=== PATIENT | female | born 1965 | race Caucasian/White ===

== ENCOUNTER 2019-05-29 08:37 | Inpatient (IN) ==
--- NOTE | 2019-04-02 12:18 | Anesthesiology Consultation ---
Date of Service April 02, 2019 Assessment & Plan (1) Encounter for pre-operative examination: Chart Review Chart Review: Pending: Refer to Additional Notes / Consult section (pending preop testing (labs, EKG, CXR)) and Patient seen in Pre Admission Testing Teaching & Discussion Pre-Anesthesia Teaching/Discussion Notes: Instructed NPO after midnight before surgery,except medications with 15 cc of water. Medication instructions prov ided according to the PAT guidelines. History Surgery Operation Date: 05/29/19 07:00 Proposed Procedures p Left Total Knee Arthroplasty - Klaus Saleh MD Height/Weight Height: 5 ft 1.5 in Weight: 125.1 kg Allergies Allergy/AdvReac Type Severity Reaction Status Date / Time sumatriptan [From Imitrex] Allergy Severe BODY Verified 03/29/19 15:20 NUMBNESS/HEADACHE INCREASED adhesive tape AdvReac Intermediate SKIN Verified 03/29/19 15:20 IRRITATION Medications Home Medications Medication Instructions Recorded Confirmed Last Taken albuterol sulfate 2 inh INHALATION Q6H PRN 03/29/19 03/29/19 Unknown ascorbic acid (vitamin C) [Vitamin 1 g PO DAILY 03/29/19 03/29/19 Unknown C] benazepril-hydrochlorothiazide 1 tab PO QAM 03/29/19 03/29/19 Unknown calcium carbonate-vitamin D3 1 cap PO DAILY 03/29/19 03/29/19 Unknown [Calcium 600 + D(3)] levothyroxine 25 mcg PO QAM 03/29/19 03/29/19 Unknown lysine [L-Lysine] 500 mg PO DAILY 03/29/19 03/29/19 Unknown montelukast [Singulair] 10 mg PO PM 03/29/19 03/29/19 Unknown multivitamin 1 tab PO DAILY 03/29/19 03/29/19 Unknown pantoprazole 40 mg PO QAM 03/29/19 03/29/19 Unknown paroxetine HCl [Paxil] 30 mg PO QAM 03/29/19 03/29/19 Unknown potassium 99 mg PO DAILY 03/29/19 03/29/19 Unknown turmeric 400 mg PO DAILY 03/29/19 03/29/19 Unknown cetirizine [Zyrtec] 10 mg PO DAILY 04/02/19 04/02/19 Unknown melatonin 1 tab PO HS 04/02/19 04/02/19 Unknown Past Medical History Medical History CAD (coronary artery disease) "minimal" per 06/2015 cardiac cath Morbid obesity Anxiety and depression Asthma stable Fibromyalgia GERD (gastroesophageal reflux disease) controlled Hypertension Hypothyroidism Lower back pain Migraine Osteoarthritis Sleep apnea BIPAP Temporomandibular joint disorder no locking Exercise / Class Metabolic Activity III < 4 Walking/Shop/Light housework Past Family History Family History Other Family history of esophageal cancer Past Surgical History Surgical History H/O total hysterectomy History of arthroscopy RT KNEE History of cardiac cath 2014= NO STENTS History of section X 3 History of colonoscopy History of esophagogastroduodenoscopy (EGD) + DILATION [place] teeth removed Past Anesthesia History Other Patient: *Awareness* with cardiac cath, EGD. Daughter: "slow to wake" History of PONV No Hx of PONV and Hx of Motion Sickness (mild) Social History Smoking Status: Former smoker tobacco type: cigarettes Do You Dip or Chew Tobacco: No Smoking End Date: QUIT 25 YEARS AGO Hx Alcohol Use: Yes Alcohol type: hard liquor alcohol intake frequency: a few times a month Hx Substance Use: No substance use type: does not use Review of Systems Reflux controlled. Patient denies chest pain, shortness of breath, cough, wheezing, palpitations. Physical Exam Vital Signs VITALS BP 123/73 P 75 TEMP 98.3 SP02 94%RA RESP 16 PHYSICAL Full neck and c-spine range of motion. Full TMJ range of motion. TMD 3.5 finger breaths Mallampati Score 2 Dentition: intact Lungs: clear throughout to auscultation Cardiac: regular rate and rhythm, no murmurs noted Spine: normal Carotid arteries: negative bruit Extremities: no edema Thick neck Testing Echocardiogram Date: 06/18/15 EF 55%. No RWMA. Mild LVH. Mild to moderate TR. Mild MR. Mild pulmonary HTN (PASP 32-37mmhg). Stress Test Date: 06/18/15 Type: nuclear (Lexiscan) EF 62%. Positive stress EKG. Anterior/apical wall ischemia on nuclear stress test. *Subsequent cardiac cath with minimal non-obstructive CAD done 06/30/15* Cardiac Catheterization Date: 06/30/15 Minimal CAD. EF 60%. No aortic stenosis.
--- NOTE | 2019-04-02 12:25 | PAT Medication Instructions ---
Medication Instructions Date of Service April 02, 2019 Home Medications albuterol sulfate 2 inh INHALATION Q6H PRN ascorbic acid (vitamin C) [Vitamin C] 1 g PO DAILY benazepril-hydrochlorothiazide 1 tab PO QAM calcium carbonate-vitamin D3 [Calcium 600 + D(3)] 1 cap PO DAILY levothyroxine 25 mcg PO QAM lysine [L-Lysine] 500 mg PO DAILY montelukast [Singulair] 10 mg PO PM multivitamin 1 tab PO DAILY pantoprazole 40 mg PO QAM paroxetine HCl [Paxil] 30 mg PO QAM potassium 99 mg PO DAILY turmeric 400 mg PO DAILY Zyrtec daily Melatonin QPM STOP taking 2 weeks before surgery (or as soon as possible if surgery is within 2 weeks) lysine [L-Lysine] 500 mg PO DAILY turmeric 400 mg PO DAILY DO NOT take the morning of surgery ascorbic acid (vitamin C) [Vitamin C] 1 g PO DAILY calcium carbonate-vitamin D3 [Calcium 600 + D(3)] 1 cap PO DAILY multivitamin 1 tab PO DAILY potassium 99 mg PO DAILY Zyrtec daily Take morning of surgery With a small sip of water, OTHERWISE NOTHING TO EAT OR DRINK AFTER MIDNIGHT: albuterol sulfate 2 inh INHALATION Q6H PRN (use if needed; please bring with you to hospital day of surgery if possible) levothyroxine 25 mcg PO QAM pantoprazole 40 mg PO QAM paroxetine HCl [Paxil] 30 mg PO QAM Take evening before surgery albuterol sulfate 2 inh INHALATION Q6H PRN (if needed) montelukast [Singulair] 10 mg PO PM melatonin PM Other Notes If you have any questions please call us at [phone] or [phone] or [phone] or [phone]
[2019-04-02 13:02] LABS: Basophils # (auto) 0.04 K/uL (0-0.2); Basophils % (auto) 0.5 %; Eosinophils # (auto) 0.45 K/uL (0-0.5); Eosinophils % (auto) 5.5 %; Hematocrit (blood only) 34.8 % (37-47); Hemoglobin 11.4 g/dL (12.0-16.0); Immature Granulocytes # (auto) 0.03 K/uL (0.00-0.02); Immature Granulocytes % (auto) 0.4 %; Lymphocytes # (auto) 1.88 K/uL (1.2-3.4); Lymphocytes % (auto) 23.1 %; Mean Corpuscular Hgb Conc 32.8 g/dL (32-36); Mean Corpuscular Volume 94.6 fL (80-100); Monocytes # (auto) 0.53 K/uL (0.11-0.59); Monocytes % (auto) 6.5 %; Neutrophils # (auto) 5.21 K/uL (1.4-6.5); Platelet Count 262 K/uL (130-400); RDW Coefficient of Variation 12.8 % (11.5-14.5); Red Blood Count 3.68 M/uL (4.2-5.4); White Blood Count 8.14 K/uL (4.8-10.8)
[2019-04-02 13:21] LABS: Partial Thromboplastin Time 27.1 Seconds (21.0-31.0); Prothrombin Time 10.4 Seconds (9.0-12.0)
--- NOTE | 2019-04-02 13:24 | XRay Report ---
XR chest Pre-admission PA/Lat CLINICAL HISTORY: Preoperative chest COMPARISON STUDY: No previous studies for comparison. FINDINGS: The cardiac and mediastinal contours are normal. There is no evidence of focal pulmonary co nsolidation. There is no evidence of failure. No pleural effusions are visualized.[ IMPRESSION: No active disease in the chest. Electronically signed by: Guille Cullen M.D. 04/02/2019 1:23 PM
[2019-04-02 13:56] LABS: BUN Creatinine Ratio 18.4 (10-20); C Reactive Protein 1.75 mg/dl (0-0.29); Calcium 9.5 mg/dl (8.5-10.1); Creatinine Clr Calc Pharmacy 83.3 ml/min; Est GFR (African American) 75.9; Est GFR (Non-African American) 65.5; Potassium 4.1 mmol/L (3.5-5.1)
--- NOTE | 2019-05-27 12:47 | History and Physical Report ---
DATE OF ADMISSION: 05/29/2019 CHIEF COMPLAINT: Bilateral knee pain and discomfort, left side greater than the right. HISTORY OF PRESENT ILLNESS: The patient is a 54-year-old female from [place], who presents for treatment of her knees. She has got a long history of bilateral knee pain and discomfort, describes it has gotten worse over time. She states this has been going on for over 15 years. 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 She has seen Dr. Agarwal in the past who refused to consider surgery due to her BMI. She has got a BMI of 52. She continues to be limited by her walking. She has tried to lose weight but unsuccessful due to her limited mobility. She uses a cane to get around for the past year or two. She denies any groin pain. Walking tolerance is a couple of blocks at best. She would like to have her knees fixed. The left knee is a bit worse than the right. PAST MEDICAL HISTORY: Past medical history significant for 1. Morbid obesity with BMI of 52. 2. Hypertension. 3. Fibromyalgia. 4. Asthma. 5. Hypothyroidism. 6. Sleep apnea with CPAP machine. 7. Low back pain/sciatica. PAST SURGICAL HISTORY: Includes: 1. x3. 2. Hysterectomy. 3. Knee arthroscopy. 4. Endometriosis surgery. ALLERGIES: IMITREX. CURRENT MEDICINES: Include: 1. Paxil. 2. Pantoprazole. 3. Benazepril/hydrochlorothiazide. 4. Levothyroxine. 5. Singulair. 6. Zyrtec. 7. Albuterol. 8. Melatonin. 9. Lysine. 10. Potassium. 11. Vitamin C. 12. Vitamin D. 13. B complex. 14. Turmeric. SOCIAL HISTORY: A 54-year-old female. She is . She runs a dance studio. Rare alcohol intake. Does not smoke. FAMILY HISTORY: Noncontributory. REVIEW OF HISTORY: Negative for diabetes, neurologic problem, vascular problem, bleeding disorders. Denies any chest pain or shortness of breath. No history of DVT or PE. No known bleeding problems. PHYSICAL EXAMINATION: GENERAL: Shows a pleasant, middle-aged female. Looks to be in reasonably good health. HEENT: Benign. NECK: Supple, no lymphadenopathy. LUNGS: Clear to auscultation. HEART: Regular rate and rhythm. ABDOMEN: Soft, nontender, nondistended. EXTREMITIES: Grossly neurovascularly intact except as follows. Examination of both knees reveals patient walks with a waddling gait. She has got a moderate to large soft tissue envelope. Examination of the left knee reveals varus alignment. Large soft tissue envelope. She is tender with medial joint line. Small knee effusion. Range of motion is 5-110. No instability. No pain with hip motion. Examination of the right knee reveals varus alignment. She is tender over the medial joint line. Small knee effusion. Range of motion 5-110. No instability. No pain with hip motion. X-RAYS: X-rays of both knees were reviewed. It shows advanced bilateral knee DJD. She has got complete loss of medial joint space. She has tibial femoral subluxation. ASSESSMENT: A 54-year-old female with advanced bilateral knee degenerative joint disease. She has failed conservative treatment. She has a very large BMI, but has attempted weight loss with unsuccessful results. She would like to consider knee surgery. PLAN: We are going to proceed with left knee replacement. The risks and benefits of this procedure were explained to the patient including but not limited to DVT, PE, , infection, neurological injury, vascular injury, bleeding problem, pain, limited range of motion, stiffness, failure to relieve symptoms, incomplete relief of symptoms, need for further surgery in future, fracture, leg length inequality, nerve palsy, etc. The patient understands and desires to proceed. Informed consent was obtained. I did talk to her about her BMI and her increased risk of complications, which are markedly increased. She is aware of this and would like to proceed. We will likely put a stem in her tibia due to her large size and deformity. We will hold her lisinopril the morning of surgery. She is planning to be discharged to home. Her daughters will apparently be available to assist in her care.
[~2019-05-29 08:37] MED LIST: ACETAMINOPHEN 500 MG TAB PO SCH; BETAMETH SOD PHOS/ACETATE IA 6 MG/ML IM STA; BUPIVACAINE 0.5 % 5 MG/1 ML PF 10ML VIAL ONE; BUPIVACAINE LIPOSOME/PF 266 MG, BUPIVACAINE/EPINEPHRINE 50 ML, SODIUM CHLORIDE 0.9% 30 ... INFIL SCH; CEFAZOLIN 3000MG 72.5 ML IV SCH; FAMOTIDINE 20 MG TAB PO SCH; GABAPENTIN 600 MG DOSE PO SCH; LR 500ML BOLUS, THEN 15ML/HR IV SCH; LR 60ML/HR IV SCH; METOCLOPRAMIDE HCL 10 MG TABLET PO SCH; MIDAZOLAM HCL 1 MG/ML 2ML VIAL ONE; ROPIVACAINE 0.5% 5 MG/ML 30 ML VIAL ONE; SCOPOLAMINE 1.5 MG TDSY TD SCH; TRANEXAMIC ACID 1,000 MG **IV Intra-op IV SCH; fentaNYL citrate 100 MCG/2 ML VIAL ONE
--- NOTE | 2019-05-29 08:50 | History & Physical Bridge Note ---
Date of Service May 29, 2019 History & Physical Bridge Note I have examined the patient, reviewed the History & Physical and in the interval since the performance of the History & Physical I have noted the following changes of clinical significance: Patient with severe bilateral knee DJD. We will inject right knee while under anesthesia at patient's request.
[2019-05-29] MEDS ORDERED: ONDANSETRON INJ 2 MG/ML 2 ML VIAL IV PRN ×2 (09:34→14:23)
[2019-05-29] MEDS ORDERED: KETOROLAC 30 MG/ML VIAL IV PRN (09:34)
[2019-05-29] MEDS ORDERED: HYDROmorphone INJ 1 MG/ML SYRINGE IV PRN (09:34)
[2019-05-29] MEDS ORDERED: ePHEDrine sulfate 50 MG/ML AMP IV PRN (09:34)
[2019-05-29] MEDS ORDERED: ATROPINE SULFATE 0.1 MG/ML 10ML SYR IV PRN (09:34)
[2019-05-29] MEDS ORDERED: BACITRACIN INJ 50,000 UNIT VIAL ONE (09:35)
[2019-05-29] MEDS ORDERED: EPINEPHrine INJ 1 MG/ML AMP ONE (09:35)
[2019-05-29] MEDS ORDERED: BUPIVACAINE LIPOSOME 1.3% 266 MG/20 ML VIAL ONE (09:35)
[2019-05-29] MEDS ORDERED: BUPIVACAINE 0.25% 30 ML VIAL ONE (09:35)
[2019-05-29] MEDS ORDERED: SODIUM CHLORIDE 0.9% PF 50 ML VIAL ONE (09:35)
[2019-05-29] MEDS ORDERED: VANCOMYCIN HCL 1000MG/20ML VIAL ONE (09:36)
[2019-05-29] MEDS ORDERED: BUPIVACAINE 0.5 % 5 MG/1 ML MPF 30ML VIAL ONE (09:36)
[2019-05-29] MEDS ORDERED: PROPOFOL IV EMULSION 10 MG/ML 20 ML VIAL IV ONE ×2 (10:37→11:34)
[2019-05-29] MEDS ORDERED: KETAMINE HCL INJ 50 MG/ML 10 ML VIAL ONE (10:49)
[2019-05-29] MEDS ORDERED: GLYCOPYRROLATE 0.2 MG/ML VIAL ONE (10:50)
[2019-05-29] MEDS ORDERED: ONDANSETRON INJ 2 MG/ML 2 ML VIAL ONE (10:50)
[2019-05-29] MEDS ORDERED: MIDAZOLAM HCL 1 MG/ML 2ML VIAL ONE (10:58)
--- NOTE | 2019-05-29 12:49 | Post Operative Brief Note ---
PG Immediate Post Op with CF Date of Surgery May 29, 2019 Pre & Post Diagnosis Operation Date: 05/29/19 10:55 Pre-Op Diagnosis: Bilateral Knee Advanced Degenerative Joint Disease Post-Op Diagnosis: Bilateral Knee Advanced Degenerative Joint Disease I identified the patient and participated in the time-out.: Yes Procedure Operation Date: 05/29/19 10:55 Actual Procedures p Left Total Knee Arthroplasty and Right Knee Injection(Bilateral) - Klaus Saleh MD Surgeon Klaus Saleh MD Non Destructive Testing Technician Radu, PAC Estimated Blood Loss 50 Findings Consistent with Post-Op Diagnosis Fluids 700 cc Specimens Specimen Description: A. Left Knee Bone and Tissue Drains Frank Catheter (A 16 Albanian frank catheter was attempted to be placed by Pat Chandler RN, resistance met at urethral opening, a 12 [place]ian frank catheter was then placed without difficulty, clear yellow urine obtained, output to be monitored by Anesthesia.) Anesthesia Type Spinal MAC Complications none Disposition Accompanied Patient To Recovery: No Disposition: Recovery Room
--- NOTE | 2019-05-29 13:25 | XRay Report ---
TWO VIEWS LEFT KNEE CLINICAL HISTORY: Postoperative examination. FINDINGS: AP and crosstable lateral portable views of the left knee are obtained. A left knee arthrop lasty is in near anatomic alignment. There has been undersurface remodeling of the patella. There is a long tibial stem. No acute fracture is seen. There are expected postoperative changes around the kn ee including skin clips, soft tissue edema, and subcutaneous gas. IMPRESSION: Expected postoperative changes status post left knee arthroplasty. No acute fracture is s een. Electronically signed by: Rd Freeman M.D. 05/29/2019 1:24 PM
--- NOTE | 2019-05-29 13:54 | Anesthesiology Progress Note ---
Date of Service May 29, 2019 Anesthesia Post Procedure Vital Signs Vital Signs: Temp Pulse Pulse Resp BP Pulse Ox 05/29/19 13:25 37.0 C 78 19 122/79 96 05/29/19 13:15 36.6 C 82 14 116/74 93 05/29/19 13:05 36.6 C 82 19 129/86 93 05/29/19 12:56 36.6 C 84 14 136/80 96 05/29/19 09:11 37.3 C 92 H 20 165/93 H 95 Pain Intensity Left Knee: Pain Intensity: 0 Right Knee: Pain Intensity: 0 Transfer of Care Handoff Completed per policy Notes Mental Status: alert / awake / arousable Patient Amnestic to Procedure: Yes Nausea / Vomiting: adequately controlled Pain: adequately controlled Airway Patency, RR, SpO2: stable & adequate BP & HR: stable & adequate Hydration State: stable & adequate Neuraxial Anesthesia: was administered and sensory block is resolving Anesthetic Complications: no major complications apparent
[2019-05-29] MEDS ORDERED: MAGNESIUM HYDROXIDE SUSP 30 ML UDC PO PRN (14:23)
[2019-05-29] MEDS ORDERED: ALUMINUM/MAGNESIUM SUSP 30 ML UDC PO PRN (14:23)
[2019-05-29] MEDS ORDERED: BISACODYL 10 MG SUPP PR PRN (14:23)
[2019-05-29] MEDS ORDERED: HYDROmorphone INJ 0.5 MG/0.5 ML SYR IV PRN (14:23)
[2019-05-29] MEDS ORDERED: METOCLOPRAMIDE HCL INJ 5 MG/ML 2 ML VIAL IV PRN (14:23)
[2019-05-29] MEDS ORDERED: NALOXONE HCL 0.4 MG/1 ML VIAL/CARP IV PRN (14:23)
[2019-05-29] MEDS ORDERED: ALBUTEROL HFA 8 GM INHALER INH PRN (14:43)
[2019-05-29] MEDS: OXYCODONE HCL IR 5 MG TAB (IMMEDIATE RELEASE) PO PRN ×2 (16:13→22:21)
[2019-05-29] MEDS: SODIUM CHLORIDE 0.9% 1000ML 1,000 ML IV SCH ×2 (16:14→22:22)
[2019-05-29] MEDS: CHECK SCOPOLAMINE PATCH PLACEMENT SCH ×2 (16:17→23:39)
--- NOTE | 2019-05-29 17:55 | Operative Report ---
Post Operative Report Pre & Post Diagnosis Operation Date: 05/29/19 10:55 Pre-Op Diagnosis: Bilateral Knee Advanced Degenerative Joint Disease Post-Op Diagnosis: Bilateral Knee Advanced Degenerative Joint Disease I identified the patient and participated in the time-out.: Yes Procedure Operation Date: 05/29/19 10:55 Actual Procedures p Left Total Knee Arthroplasty and Right Knee Injection(Bilateral) - Klaus Saleh MD Surgeon Klaus Saleh MD Chief Customer Officer Radu, PAC Estimated Blood Loss 50 Findings Consistent with Post-Op Diagnosis Operative findings revealed advanced bilateral knee DJD. With respect to the left knee she had extensive grade 4 changes in all 3 compartments. She had a very stiff knee and a large soft tissue envelope. She had osteophytes in all 3 compartments with a large knee joint effusion. Fluids 700 cc Specimens Left knee sent for pathology. Anesthesia Type Spinal MAC Complications none Disposition Accompanied Patient To Recovery: No Disposition: Recovery Room Indications Patient is a 53-year-old obese female who has a long history of bilateral left knee pain discomfort describes gotten worse over time. This been going on over the past 15 years. She is been through extensive conservative treatment without relief. She had to resort to using a cane to get around. 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 She is attempted extensive weight loss without much success. She is x-ray showed advanced tricompartment DJD. She elected to left total knee replacement and a right knee injection. Description of Procedure Operative implants consisted of: 1. Biomet Vanguard size 60 left posterior bifemoral component. 2. Biomet size 63 Vanguard III 68 tibial tray with a 10 x 80 mm stem and a small cruciate wing. 3. 10 mm posterior bite polyethylene insert. 4. 25 x 8 all poly-patella. Of note, due to this patient's large stature and obesity, I elect to place a tibial stem in order to maximize the stability of her tibial implant and also placed vancomycin in the cement due to increased risk of infection based on her obese status. Patient was taken to the operating room and identified and placed in the operating table supine position. Contact there is probably padded. IV antibiotics were read by anesthesia team. A spinal anesthetic and abductor canal block had provided in the holding area. Villafuerte cath was placed in sterile fashion with a left thigh tip was then placed. Attention was first turned the r ight knee. Breath right knee was cleaned with alcohol. 2 cc of Celestone and 8 cc Marcaine injected into the right knee in sterile fashion. A gauze pad was placed in the EDWIGE stockings and placed over this. The left leg was then prepped and draped in the usual sterile fashion. The left leg was elevated exsanguinated and the tourniquet was placed at 3 and 50 mmHg. An anterior posterior left knee was then performed the longitudinal incision centered over the patella. Sharp passes cut through subcutaneous tissue down below the extensor mechanism. A medial parapatellar arthrotomy incision was made. Some subperiosteal dissection dissection was carried out medially. I did pretty extensive medial dissection to a large soft tissue envelope. The fat pad was resected from beneath patella tendon. Lateral patellofemoral ligament was released. Patella was subluxated laterally and the knee was flexed with the osteophytes taken off the distal femur. The ACL and PCL were then released from the distal femur and the tibia subluxated anteriorly. The saw was then used to resect the tibial eminence. I then used the entry drill to enter the IM canal. We placed the canal finder down the canal edema and this was tight down the canal. I then placed a 10 mm reamer down the canal and then used this to cut the proximal tibia. The proximal tibial cut was then made to remove about a millimeter bone from the most efficient aspect medial tibial plateau. The tibia size a size 63. We then will begin to repair this for an offset tibial stem but the metaphysis of the bone was too narrow as I could even get the entry reamer down. Therefore we chose another option. I elected to place a 10 mm straight stem of shorter nature so that it would not require the offset reaming device. The 63 tibial tray was pinned in place and we prepared the proximal tip with a small cruciate wing. The implant was placed and fit nicely. Attention drawn the femur. New per the disc femur there was a sharp drill bit intramedullary canal was suction. A left 5 degree valgus cutting guide was placed but this femoral cutting block was pinned in place but this femoral cut was made to take an additional 3 mm of bone off the distal femur. The femur was then sized to a size 60. The AP cutting block was pinned parallel to the epicondylar axis which is 4 degrees of external rotation with anterior cut, anterior chamfer, posterior cut, posterior chamfer cuts were made. Box cutting guide was placed and just slightly lateral and the box cut was made. The knee was flexed with the remnants of the medial lateral menisci were excised. The osteophytes taken off the posterior aspect the femur. A trial femoral component was placed but the tibial polyethylene insert was then placed to the knee was then trialed and the 10 mm insert fit most appropriately. Attention down the patella. The patella was cleaned of all soft tissues. Patella thickness measured 20 mm in thickness cut down 13 but was sized to size 25 patella. Locals were drilled for the 25 patella. The lateral osteophyte is moved. Patella button was placed. Knee was taken through range of motion patella tracked nicely with no thumbs test. Attention drawn to place the permanent components. Trial components removed. A bone plug was placed in the disc femur limit blood loss put a double batch [place] G cement was mixed. I did add an additional gram of vancomycin due to the cement due to her obese status. A Biomet Vanguard size 60 left posterior bifemoral component, a size 63 tibial tray with a 10 x 80 stem and a small cruciate wing, a 10 mm posterior bite polyethylene insert, 25 x 8 all poly-patella then cement in place. Knees brought in full extension until cement hardened. Final cement check was then performed. Pericapsular tissues were injected with total of 100 cc of combination twice of Exparel, 30 cc normal saline, 50 cc of quarter percent Marcaine with epinephrine. Patient did receive 1 g of tranexamic acid with the tendon was then let down for final tourniquet time 80 minutes. Hemostasis should use electrocautery. The wounds once again irrigated. Extensor macros then closed with combination 1 PDS suture #1 Vicryl suture in [id number] fashion with extensive medical checked found to be intact the subtenons tissue then closed with 2 Dexon suture buried knot fashion skin was closed skin tracie. Leg was then cleaned dried and sterile dressing was Xeroform for 4 sterile cast padding and Robi bandage were applied. Patient then transferred to the recovery room in stable condition. Patient tolerated the procedure well and there were no complications. All needle sponge counts are correct at the end the operation. I attest to the content of the Intraoperative Record and any orders documented therein. Any exceptions are noted below.
[2019-05-29] MEDS: FERROUS GLUCONATE 324 MG TAB PO SCH (18:03)
[2019-05-29] MEDS: ASCORBIC ACID 500 MG TAB PO SCH (18:04)
[2019-05-29] MEDS: KETOROLAC 30 MG/ML VIAL IV SCH ×2 (18:04→23:39)
[2019-05-29] MEDS: CEFAZOLIN 2000MG 2,000 MG/15 ML SYR IV SCH (18:05)
[2019-05-29] MEDS ORDERED: TRANEXAMIC ACID 1,000 MG in 0.9 % SODIUM CHLORIDE 100 ML IV SCH (18:51)
[2019-05-29] MEDS: SENNA 8.6 MG TAB PO SCH (20:32)
[2019-05-29] MEDS: MONTELUKAST SODIUM 10 MG TABLET PO SCH (20:33)
[2019-05-29] MEDS: TAPENTADOL HCL ER 50 MG TABCR PO SCH (20:33)
[2019-05-29] MEDS: DOCUSATE SODIUM 100 MG CAP PO SCH (20:33)
[2019-05-29] MEDS: ASPIRIN 81 MG ECTAB PO SCH (20:33)
[2019-05-29] MEDS ORDERED: NON-FORMULARY MEDICATION (Melatonin 1 TAB) PO SCH (21:00)
[2019-05-29] MEDS: ACETAMINOPHEN 500 MG TAB PO SCH (22:21)
[2019-05-30] MEDS: CEFAZOLIN 2000MG 2,000 MG/15 ML SYR IV SCH (03:08)
[2019-05-30] MEDS: ACETAMINOPHEN 500 MG TAB PO SCH ×3 (06:21→20:57)
[2019-05-30] MEDS: LEVOTHYROXINE SODIUM 25 MCG TABLET PO SCH (06:21)
[2019-05-30 06:22] LABS: Hematocrit (blood only) 30.2 % (37-47); Hemoglobin 10.1 g/dL (12.0-16.0); Mean Corpuscular Hemoglobin 31.9 pg (25-34); Mean Corpuscular Hgb Conc 33.4 g/dL (32-36); Mean Corpuscular Volume 95.3 fL (80-100); Mean Platelet Volume 10.9 fL (7.4-10.4); Platelet Count 238 K/uL (130-400); RDW Coefficient of Variation 12.9 % (11.5-14.5); Red Blood Count 3.17 M/uL (4.2-5.4); White Blood Count 15.77 K/uL (4.8-10.8)
[2019-05-30] MEDS: KETOROLAC 30 MG/ML VIAL IV SCH ×4 (06:23→23:50)
[2019-05-30 07:02] LABS: BUN Creatinine Ratio 15.7 (10-20); Calcium 8.4 mg/dl (8.5-10.1); Creatinine Clr Calc Pharmacy 89.5 ml/min; Est GFR (African American) 84.6; Potassium 3.9 mmol/L (3.5-5.1)
--- NOTE | 2019-05-30 07:56 | Anesthesiology Progress Note ---
Date of Service May 30, 2019 Anesthesia Post Procedure Vital Signs Vital Signs: Temp Pulse Pulse Pulse Resp BP Pulse Ox 05/30/19 07:37 36.6 C 66 18 101/62 94 05/30/19 03:06 36.8 C 84 16 116/69 93 05/29/19 22:47 37.0 C 89 16 106/65 93 05/29/19 19:28 36.9 C 88 16 126/69 95 05/29/19 15:40 37.4 C 85 16 136/76 98 05/29/19 15:10 37 C 86 16 130/74 97 05/29/19 14:35 85 16 134/73 95 05/29/19 14:05 37.1 C 88 16 107/71 96 05/29/19 13:55 37.0 C 85 20 118/72 96 05/29/19 13:45 37.0 C 91 H 22 108/85 96 05/29/19 13:35 37.0 C 88 23 131/71 92 05/29/19 13:25 37.0 C 78 19 122/79 96 05/29/19 13:15 36.6 C 82 14 116/74 93 05/29/19 13:05 36.6 C 82 19 129/86 93 05/29/19 12:56 36.6 C 84 14 136/80 96 05/29/19 09:11 37.3 C 92 H 20 165/93 H 95 Pain Intensity Left Knee: Pain Intensity: 0 Right Knee: Pain Intensity: 0 Notes Mental Status: alert / awake / arousable and participated in evaluation Patient Amnestic to Procedure: Yes Nausea / Vomiting: adequately controlled Pain: adequately controlled Airway Patency, RR, SpO2: stable & adequate BP & HR: stable & adequate Hydration State: stable & adequate Neuraxial Anesthesia: was administered and sensory block resolved Anesthetic Complications: no major complications apparent and Pt Satisfied with anesthetic care
[2019-05-30] MEDS: TAPENTADOL HCL ER 50 MG TABCR PO SCH ×2 (08:50→20:56)
[2019-05-30] MEDS: PANTOprazole 40 MG TAB PO SCH (08:50)
[2019-05-30] MEDS: FERROUS GLUCONATE 324 MG TAB PO SCH ×2 (08:51→17:46)
[2019-05-30] MEDS: ASCORBIC ACID 500 MG TAB PO SCH ×2 (08:51→17:46)
[2019-05-30] MEDS: ASPIRIN 81 MG ECTAB PO SCH ×2 (08:52→20:56)
[2019-05-30] MEDS: DOCUSATE SODIUM 100 MG CAP PO SCH ×2 (08:53→20:56)
[2019-05-30] MEDS: MULTIVITAMIN TAB PO SCH (08:53)
[2019-05-30] MEDS: CALCIUM 600MG + VIT D 400 IU TAB PO SCH (08:53)
[2019-05-30] MEDS: CETIRIZINE HCL 10 MG TABLET PO SCH (08:54)
[2019-05-30] MEDS: ENALAPRIL MALEATE 10 MG TAB PO SCH (08:54)
[2019-05-30] MEDS: hydroCHLOROthiazide 25 MG TAB PO SCH (08:54)
[2019-05-30] MEDS: PARoxetine HCl 10 MG TAB PO SCH (08:55)
[2019-05-30] MEDS ORDERED: NON-FORMULARY MEDICATION (Potassium 99 MG) PO SCH (09:00)
[2019-05-30] MEDS ORDERED: NON-FORMULARY MEDICATION (Ascorbic Acid (Vitamin C) [Vitamin C] 1 GM) PO SCH (09:00)
[2019-05-30] MEDS ORDERED: NON-FORMULARY MEDICATION (Benazepril-Hydrochlorothiazide 1 TAB) PO SCH (09:00)
[2019-05-30] MEDS ORDERED: NON-FORMULARY MEDICATION (Lysine [L-Lysine] 500 MG) PO SCH (09:00)
[2019-05-30] MEDS ORDERED: MULTIVITAMIN TAB PO SCH (09:00)
[2019-05-30] MEDS ORDERED: NON-FORMULARY MEDICATION (Turmeric 400 MG) PO SCH (09:00)
[2019-05-30] MEDS: OXYCODONE HCL IR 5 MG TAB (IMMEDIATE RELEASE) PO PRN ×2 (09:31→15:32)
--- NOTE | 2019-05-30 18:03 | Progress Note ---
DATE: 05/30/2019 SUBJECTIVE: A 54-year-old female postop day 1 from left knee replacement. She is doing pretty well. Pain is controlled. Denies any chest pain or shortness of breath. Not feeling dizzy or lightheaded. OBJECTIVE: VITAL SIGNS: Temperature 36.7. Vital signs stable. GENERAL: Shows a pleasant, middle-aged female. She is sitting up in bed and talking to her mother. She looks quite comfortable. EXTREMITIES: Examination of the left leg reveals it to be well aligned. Dressing is clean, dry and intact. She can dorsiflex and plantarflex her foot appropriately. She is neurologically intact. LABORATORY DATA: Hemoglobin is 10.1. Hematocrit 30.2. Electrolytes are stable. ASSESSMENT: A 54-year-old female postoperative day 1 from left knee replacement, doing pretty well. Her pain is controlled. She is neurologically intact. Mildly anemic, but asymptomatic. PLAN: 1. DVT prophylaxis including thigh-high TEDs, SCDs, and aspirin twice a day. 2. PT/OT. Weight bear as tolerated. Left total knee protocol. 3. Pain control, doing pretty well with current pain regimen. 4. Anemia. Will continue iron supplementation. She is asymptomatic and no need for transfusion. 5. Disposition: Plan to discharge her home with some home health once adequately recovered and medically stable.
[2019-05-30] MEDS: SENNA 8.6 MG TAB PO SCH (20:57)
[2019-05-30] MEDS: MONTELUKAST SODIUM 10 MG TABLET PO SCH (20:57)
[2019-05-31] MEDS: KETOROLAC 30 MG/ML VIAL IV SCH ×2 (06:03→12:33)
[2019-05-31] MEDS: LEVOTHYROXINE SODIUM 25 MCG TABLET PO SCH (06:03)
[2019-05-31] MEDS: ACETAMINOPHEN 500 MG TAB PO SCH ×2 (06:03→13:35)
[2019-05-31] MEDS: OXYCODONE HCL IR 5 MG TAB (IMMEDIATE RELEASE) PO PRN ×2 (07:26→14:46)
[2019-05-31] MEDS: FERROUS GLUCONATE 324 MG TAB PO SCH (07:46)
[2019-05-31] MEDS: ASCORBIC ACID 500 MG TAB PO SCH (07:47)
[2019-05-31] MEDS: DOCUSATE SODIUM 100 MG CAP PO SCH (07:47)
[2019-05-31] MEDS: CETIRIZINE HCL 10 MG TABLET PO SCH (07:48)
[2019-05-31] MEDS: ENALAPRIL MALEATE 10 MG TAB PO SCH (07:48)
[2019-05-31] MEDS: hydroCHLOROthiazide 25 MG TAB PO SCH (07:48)
[2019-05-31] MEDS: ASPIRIN 81 MG ECTAB PO SCH (07:49)
[2019-05-31] MEDS: MULTIVITAMIN TAB PO SCH (07:49)
[2019-05-31] MEDS: CALCIUM 600MG + VIT D 400 IU TAB PO SCH (07:49)
[2019-05-31] MEDS: PARoxetine HCl 10 MG TAB PO SCH (07:50)
[2019-05-31] MEDS: PANTOprazole 40 MG TAB PO SCH (07:50)
[2019-05-31] MEDS: TAPENTADOL HCL ER 50 MG TABCR PO SCH (07:52)
--- NOTE | 2019-05-31 08:24 | Progress Note ---
DATE: 05/31/2019 SUBJECTIVE: A 54-year-old female postop day 2 from left knee replacement. She is doing pretty well. Pain is controlled. No chest pain or shortness of breath. Not feeling dizzy or lightheaded. OBJECTIVE: VITAL SIGNS: Temperature 36.4. Vital signs stable. GENERAL: Shows a pleasant, middle-aged female. She is lying in bed, looks comfortable. EXTREMITIES: Examination of the left leg reveals the leg to be well aligned. Incision is clean, dry and intact. No significant drainage. She is neurologically intact. ASSESSMENT: A 54-year-old female postop day 2 from a left knee replacement, doing well. Pain is controlled. She is neurologically intact. PLAN: 1. DVT prophylaxis including thigh-high TEDs, SCDs, and aspirin twice a day. 2. PT/OT. Weight bear as tolerated. Left total knee protocol. 3. Pain control, doing well with current pain regimen. 4. Disposition: Plan to discharge to home with some home health later today.
== END 2019-05-31 15:57 | disposition home health service (06) | DRG 470 ==
LOC: ASU 08:37 → 3E 12:51

== ENCOUNTER 2020-04-24 06:31 | Observation (INO) ==
--- NOTE | 2020-03-24 15:01 | PAT Medication Instructions ---
Medication Instructions Date of Service March 24, 2020 Home Medications Calcium 600 + D(3) 1 cap PO QPM albuterol sulfate 2 inh INHALATION Q6H PRN ascorbic acid (vitamin C) 1 g PO QAM benazepril-hydrochlorothiazide 1 tab PO QAM levothyroxine 25 mcg PO QAM lysine [L-Lysine] 500 mg PO QAM montelukast [Singulair] 10 mg PO PM multivitamin 1 tab PO QAM pantoprazole 40 mg PO QAM paroxetine HCl [Paxil] 30 mg PO QAM turmeric 400 mg PO QAM cetirizine [Zyrtec] 10 mg PO QAM melatonin 3 mg PO HS Potassium-Otc 99 mg PO QPM acetaminophen [Tylenol Extra Strength] 1,000 mg PO Q6H PRN vitamin B complex 1 tab PO QAM STOP taking 2 weeks before surgery If surgery is within 2 weeks, stop taking as soon as possible. lysine [L-Lysine] 500 mg PO QAM turmeric 400 mg PO QAM DO NOT take the morning of surgery ascorbic acid (vitamin C) 1 g PO QAM benazepril-hydrochlorothiazide 1 tab PO QAM multivitamin 1 tab PO QAM cetirizine [Zyrtec] 10 mg PO QAM acetaminophen [Tylenol Extra Strength] 1,000 mg PO Q6H PRN vitamin B complex 1 tab PO QAM Take morning of surgery With a small sip of water, OTHERWISE NOTHING TO EAT OR DRINK AFTER MIDNIGHT: albuterol sulfate 2 inh INHALATION Q6H PRN (if needed) levothyroxine 25 mcg PO QAM pantoprazole 40 mg PO QAM paroxetine HCl [Paxil] 30 mg PO QAM Take evening before surgery Calcium 600 + D(3) 1 cap PO QPM albuterol sulfate 2 inh INHALATION Q6H PRN (if needed) montelukast [Singulair] 10 mg PO PM melatonin 3 mg PO HS Potassium-Otc 99 mg PO QPM acetaminophen [Tylenol Extra Strength] 1,000 mg PO Q6H PRN (if needed) Other Notes If you have any questions please call us at [phone] or [phone] or [phone] or [phone]
--- NOTE | 2020-03-25 09:33 | Anesthesiology Consultation ---
Date of Service March 25, 2020 Assessment & Plan (1) Encounter for pre-operative examination: COVID Status: As of 03/25 assessment, patient denies travel to endemic area, known exposure/sick contacts, or symptoms of COVID19. Patient instructed that they and their household members must follow strict social distancing guidelines, wear a mask in public and avoid travel for 14 days prior to surgery. Preoperative COVID19 testing to be completed prior to surgery per surgeon's a rrangements. Patient made aware to self-isolate as much as possible between COVID testing and surgery. Chart Review Chart Review: Acceptable Risk for Surgery and Patient seen in Pre Admission Testing Teaching & Discussion Instructed NPO after midnight before surgery, except medications with 15 cc of water. Medication instructions provided according to the PAT guidelines. History Surgery Operation Date: 04/24/20 07:30 Proposed Procedures p Right Total Knee Arthroplasty - Klaus Saleh MD Height/Weight Height: 5 ft 2 in Weight: 130.1 kg Allergies Allergy/AdvReac Type Severity Reaction Status Date / Time sumatriptan [From Imitrex] Allergy Severe BODY Verified 03/20/20 08:37 NUMBNESS/HEADACHE INCREASED adhesive tape AdvReac Intermediate SKIN Verified 03/20/20 08:37 IRRITATION Medications Home Medications Medication Instructions Recorded Confirmed Last Taken Calcium 600 + D(3) 1 cap PO QPM 03/29/19 03/20/20 05/28/19 10:00 albuterol sulfate 2 inh INHALATION Q6H PRN 03/29/19 03/20/20 Unknown ascorbic acid (vitamin C) [Vitamin 1 g PO QAM 03/29/19 03/20/20 Unknown C] benazepril-hydrochlorothiazide 1 tab PO QAM 03/29/19 03/20/20 05/28/19 10:00 levothyroxine 25 mcg PO QAM 03/29/19 03/20/20 05/29/19 06:20 lysine [L-Lysine] 500 mg PO QAM 03/29/19 03/20/20 05/15/19 montelukast [Singulair] 10 mg PO PM 03/29/19 03/20/20 05/28/19 23:55 multivitamin 1 tab PO QAM 03/29/19 03/20/20 05/28/19 10:00 pantoprazole 40 mg PO QAM 03/29/19 03/20/20 05/29/19 07:20 paroxetine HCl [Paxil] 30 mg PO QAM 03/29/19 03/20/20 05/29/19 07:20 turmeric 400 mg PO QAM 03/29/19 03/20/20 05/15/19 cetirizine [Zyrtec] 10 mg PO QAM 04/02/19 03/20/20 05/28/19 10:00 melatonin 3 mg PO HS 04/02/19 03/20/20 05/28/19 23:55 Potassium-Otc 99 mg PO QPM 03/20/20 03/20/20 Unknown acetaminophen [Tylenol Extra 1,000 mg PO Q6H PRN 03/20/20 03/20/20 Unknown Strength] vitamin B complex 1 tab PO QAM 03/20/20 03/20/20 Unknown Past Medical History Medical History (Updated 03/25/20 @ 09:35 by Jorge Dietrich) Anxiety and depression Asthma stable, only using albuterol inhaler a few times per year Bilateral primary osteoarthritis of knee CAD (coronary artery disease) "minimal" per 06/2015 cardiac cath Cardiac murmur HX Chronic back pain LOWER BACK Fibromyalgia GERD (gastroesophageal reflux disease) controlled Hypertension Hypothyroidism Lower back pain Morbid obesity Osteoarthritis Sleep apnea BIPAP Temporomandibular joint disorder no locking Exercise / Class Metabolic Activity II 4-5 Yardwork/Stairs/Walk up hill (Denies CP or SOB with 1 FOS) Past Family History Family History Other Family history of esophageal cancer Past Surgical History Surgical History (Updated 03/20/20 @ 08:46 by Sherry Powell RN) H/O total hysterectomy History of arthroscopy RT KNEE History of cardiac cath 2014= NO [facility] History of section X 3 History of colonoscopy History of esophagogastroduodenoscopy (EGD) + DILATION History of left knee replacement [place] teeth removed Past Anesthesia History No Hx of Anesthesia Complications and No Family Hx of Anesthesia Complications History of PONV No Hx of PONV and No Hx of Motion Sickness Social History Smoking Status: Former smoker tobacco type: cigarettes Do You Dip or Chew Tobacco: No Smoking End Date: QUIT 26 YRS AGO Hx Alcohol Use: Yes Alcohol type: hard liquor alcohol intake frequency: holidays/special occasions only Hx Substance Use: No substance use type: does not use Review of Systems Pt denies any recent chest pain, shortness of breath, palpitations, cough, fever, URI, or uncontrolled acid reflux. Physical Exam Vital Signs BP: 103/75 (L forearm) P: 69bpm SPO2: 95% RA T: 98.3 F R: 16 Constitutional + morbidly obese ENMT Mouth: no dental restorations, no chipped teeth and no loose teeth Thyromental Distance: > or= 3.5 Finger Breadths Mallampati Class: III Neck + short neck; neck extension not limited Respiratory normal respiratory effort Auscultation: lungs clear to auscultation bilaterally Cardiovascular Rate/Rhythm: regular rate and regular rhythm Heart Sounds: no murmur Extremities: no edema Testing Laboratory Results 03/25/20 10:05 03/25/20 10:05 PT 10.5 Seconds (9.0-12.0) 03/25/20 10:05 INR 1.0 (0.9-1.1) 03/25/20 10:05 APTT 29.1 Seconds (21.0-31.0) 03/25/20 10:05 Blood Type O Negative 03/25/20 10:05 Antibody Screen NEGATIVE 03/25/20 10:05 Electrocardiogram Date: 03/25/20 Findings: + NSR @ (64bpm) *unconfirmed Chest X-Ray Date: 03/25/20 Findings: + NAD Echocardiogram Date: 06/17/16 EF: 55% Mild LVH. Normal wall motion. Normal LV systolic function. Mild to moderate tricuspid regurgitation, mild mitral regurgitation, trace pulmonary insufficiency. Mild pulmonary hypertension. There is normal left ventricular diastolic function. Stress Test Date: 06/28/15 Based upon EKG criteria, this test is positive. Based upon the nuclear imaging findings there is anterior wall ischemia and apical ischemia. Study is moderately abnormal. Cardiac catheterization is recommended. Cardiac Catheterization Date: 06/30/15 Minimal coronary artery disease. Elevated left-sided filling pressures. Normal LV ejection fraction. No aortic stenosis.
--- NOTE | 2020-03-25 10:33 | XRay Report ---
TWO VIEW CHEST CLINICAL HISTORY: Preoperative examination. FINDINGS: PA and lateral chest radiographs are compared to study dated 04/02/2019. The cardiomediastin al silhouette is unremarkable. The lungs and pleural spaces are clear. There is no pneumothorax. The bony thorax appears intact. IMPRESSION: No active disease in the chest. ACT 112: Negative or not required by law. Electronically signed by: Rd Freeman M.D. 03/25/2020 10:32 AM
[2020-03-25 10:43] LABS: Partial Thromboplastin Time 29.1 Seconds (21.0-31.0); Prothrombin Time 10.5 Seconds (9.0-12.0)
[2020-03-25 10:51] LABS: Basophils # (auto) 0.03 K/uL (0-0.2); Basophils % (auto) 0.4 %; Eosinophils % (auto) 4.1 %; Hematocrit (blood only) 37.9 % (37-47); Hemoglobin 12.1 g/dL (12.0-16.0); Immature Granulocytes # (auto) 0.02 K/uL (0.00-0.02); Immature Granulocytes % (auto) 0.3 %; Lymphocytes # (auto) 1.71 K/uL (1.2-3.4); Lymphocytes % (auto) 23.6 %; Mean Corpuscular Hemoglobin 30.3 pg (25-34); Mean Corpuscular Hgb Conc 31.9 g/dL (32-36); Mean Corpuscular Volume 94.8 fL (80-100); Mean Platelet Volume 10.7 fL (7.4-10.4); Monocytes # (auto) 0.42 K/uL (0.11-0.59); Monocytes % (auto) 5.8 %; Neutrophils # (auto) 4.78 K/uL (1.4-6.5); Neutrophils % (auto) 65.8 %; Platelet Count 282 K/uL (130-400); RDW Coefficient of Variation 13.2 % (11.5-14.5); RDW Standard Deviation 45.6 fL (36.4-46.3); White Blood Count 7.26 K/uL (4.8-10.8)
[2020-03-25 11:03] LABS: C Reactive Protein 2.52 mg/dl (0-0.29); Creatinine Clr Calc Pharmacy 109.5 ml/min; Est GFR (African American) 102.2; Est GFR (Non-African American) 88.2; Potassium 3.9 mmol/L (3.5-5.1)
--- NOTE | 2020-03-26 14:12 | Electrocardiogram Report ---
Test Reason : Blood Pressure : / mmHG Vent. Rate : 064 BPM Atrial Rate : 064 BPM P-R Int : 198 ms QRS Dur : 098 ms QT Int : 454 ms P-R-T Axes : 048 071 008 degrees QTc Int : 468 ms Normal sinus rhythm Normal ECG When compared with ECG of 02-APR-2019 12:30, No significant change was found Confirmed by David Singh ([id number]) on 03/26/2020 2:12:08 PM Referred By: Klaus Saleh Confirmed By:David Singh
--- NOTE | 2020-04-16 21:48 | History and Physical Report ---
DATE OF ADMISSION: 04/24/2020 CHIEF COMPLAINT: Persistent right knee pain and discomfort. HISTORY OF PRESENT ILLNESS: The patient is a 54-year-old female who was just about a year out from left knee replacement, who presents for surgical treatment of her right knee. She has a long history of right knee pain and discomfort that has gradually gotten worse over time. She describes global pain. She did have an injection which helped very little. She takes medicines with minimal relief. She has failed all conservative treatment and not interested in more conservative care. She is very happy with the left hip replacement, which is about 2 years out. She would like to have her right knee replaced. PAST MEDICAL HISTORY: 1. Hypertension. 2. Sleep apnea with CPAP machine. 3. Hypothyroidism. 4. Chronic anemia. 5. Low back pain/sciatica. 6. Gastroesophageal reflux disease. 7. Obesity. PAST SURGICAL HISTORY: Include: 1. Left knee replacement done on 05/29/2019. 2. x3. 3. Hysterectomy. ALLERGIES: IMITREX. CURRENT MEDICINES: Include: 1. Turmeric. 2. Potassium. 3. Paxil. 4. Pantoprazole. 5. Multivitamin. 6. Singulair. 7. Melatonin. 8. Levothyroxine. 9. Zyrtec. 10. Calcium with vitamin D. 11. Benazepril/hydrochlorothiazide. 12. Albuterol inhaler. 13. Vitamin C. SOCIAL HISTORY: A 54-year-old female. She does not smoke. No significant alcohol intake. FAMILY HISTORY: Noncontributory. REVIEW OF HISTORY: Negative for diabetes, neurologic problem, vascular problems, bleeding disorders. Denies any chest pain or shortness of breath. No history of DVT or PE. No known bleeding problems. PHYSICAL EXAMINATION GENERAL: Shows a pleasant, obese middle aged female. HEENT: Benign. NECK: Supple, no lymphadenopathy. LUNGS: Clear to auscultation. HEART: Has a regular rate and rhythm. ABDOMEN: Soft, nontender, nondistended. EXTREMITIES: Grossly neurovascularly intact except as follows: Examination of both knees reveals the patient walks with a bit of a limp. She kind of walks from side to side. Examination of the left knee with a well-healed incision. Large soft tissue envelope. Range of motion 0-110 limited by her soft tissues. Examination of the right knee reveals slight varus alignment. She has got bony hypertrophy medially. Range of motion is 5-110. There is no instability. No pain with hip motion. X-RAYS: X-rays of the right knee reveal advanced right knee DJD. She has got some bone destruction of the medial tibial plateau and complete collapse of the joint space. She has got diffuse osteopenia. She has got osteophytes in all 3 compartments. ASSESSMENT: 1. A 54-year-old female now about a year out from a left knee replacement with advanced right knee degenerative joint disease. She has got multiple medical comorbidities including morbid obesity with a BMI of 52.5. 2. Hypertension. 3. Fibromyalgia. 4. Sleep apnea. 5. Chronic back pain. 6. Hypothyroidism. She would like to have her knee fixed. She has done well with the other knee. PLAN: We will take her to the operating room and do a total knee replacement. The risks and benefits of this procedure were explained to the patient including but not limited to DVT, PE, , infection, neurological injury, vascular injury, bleeding problem, pain, limited range of motion, stiffness, failure to relieve symptoms, incomplete relief of symptoms, need for further surgery in the future, fracture, leg length inequality, nerve palsy, etc. The patient understands and desires to proceed. Informed consent was obtained. We did talk about holding the lisinopril/benazepril in the morning. She needs to bring her CPAP machine. We have [employer] 360 system available in order to put a stem in the tibia.
[~2020-04-24 06:31] MED LIST changes: -BETAMETH SOD PHOS/ACETATE IA 6 MG/ML IM STA; -CEFAZOLIN 3000MG 72.5 ML IV SCH; -GABAPENTIN 600 MG DOSE PO SCH; +GABAPENTIN 900 MG DOSE PO SCH; -LR 500ML BOLUS, THEN 15ML/HR IV SCH; -METOCLOPRAMIDE HCL 10 MG TABLET PO SCH; -MIDAZOLAM HCL 1 MG/ML 2ML VIAL ONE; -SCOPOLAMINE 1.5 MG TDSY TD SCH; -fentaNYL citrate 100 MCG/2 ML VIAL ONE
--- NOTE | 2020-04-24 06:51 | History & Physical Bridge Note ---
Date of Service April 24, 2020 History & Physical Bridge Note I have examined the patient, reviewed the History & Physical and in the interval since the performance of the History & Physical I have noted the following changes of clinical significance: no changes noted
[2020-04-24] MEDS: LR 500ML BOLUS, THEN 15ML/HR IV SCH ×2 (07:04→07:07)
[2020-04-24] MEDS ORDERED: MIDAZOLAM HCL 1 MG/ML 2ML VIAL ONE ×2 (07:15→08:45)
[2020-04-24] MEDS ORDERED: fentaNYL citrate 100 MCG/2 ML VIAL ONE (07:15)
[2020-04-24] MEDS ORDERED: PROPOFOL IV EMULSION 10 MG/ML 20 ML VIAL IV ONE ×5 (07:28→11:07)
[2020-04-24] MEDS ORDERED: HYDROmorphone INJ 1 MG/ML SYRINGE IV PRN (08:25)
[2020-04-24] MEDS ORDERED: KETOROLAC 30 MG/ML VIAL IV PRN (08:25)
[2020-04-24] MEDS ORDERED: ATROPINE SULFATE 0.1 MG/ML 10ML SYR IV PRN (08:25)
[2020-04-24] MEDS ORDERED: ONDANSETRON INJ 2 MG/ML 2 ML VIAL IV PRN ×2 (08:25→12:17)
[2020-04-24] MEDS ORDERED: ePHEDrine sulfate 50 MG/ML AMP IV PRN (08:25)
[2020-04-24] MEDS ORDERED: BUPIVACAINE 0.25% 30 ML VIAL ONE (08:45)
[2020-04-24] MEDS ORDERED: BACITRACIN INJ 50,000 UNIT VIAL ONE (08:45)
[2020-04-24] MEDS ORDERED: BUPIVACAINE LIPOSOME 1.3% 266 MG/20 ML VIAL ONE (08:45)
[2020-04-24] MEDS ORDERED: SODIUM CHLORIDE 0.9% PF 50 ML VIAL ONE (08:45)
[2020-04-24] MEDS ORDERED: EPINEPHrine INJ 1 MG/ML AMP ONE (08:45)
[2020-04-24] MEDS ORDERED: VANCOMYCIN HCL 1000MG/20ML VIAL ONE (08:45)
[2020-04-24] MEDS ORDERED: PHENYLEPHRINE 100MCG/ML 5ML SYR ONE (09:21)
[2020-04-24] MEDS ORDERED: ePHEDrine sulfate 50 MG/ML SYR ONE ×2 (09:21→11:07)
[2020-04-24] MEDS ORDERED: GLYCOPYRROLATE 0.2 MG/ML VIAL ONE ×2 (09:31→09:40)
--- NOTE | 2020-04-24 11:19 | Post Operative Brief Note ---
PG Immediate Post Op with CF Date of Surgery April 24, 2020 Pre & Post Diagnosis Operation Date: 04/24/20 08:50 Pre-Op Diagnosis: Right knee degenerative joint disease Post-Op Diagnosis: Right knee degenerative joint disease I identified the patient and participated in the time-out.: Yes Procedure Operation Date: 04/24/20 08:50 Actual Procedures p Right Total Knee Replacement, Cemented(Right) - Klaus Saleh MD Surgeon Klaus Saleh MD Rehab Nurse Radu, PAC Estimated Blood Loss 50 Findings Consistent with Post-Op Diagnosis Fluids 800 cc Specimens Specimen Description: Permanent Specimen A: Right knee bone and tissue Drains Villafuerte Catheter Anesthesia Type Spinal MAC Complications none Disposition Accompanied Patient To Recovery: No Disposition: Recovery Room
--- NOTE | 2020-04-24 11:51 | Anesthesiology Progress Note ---
Date of Service April 24, 2020 Anesthesia Post Procedure Vital Signs Vital Signs: Temp Pulse Pulse Resp BP BP Pulse Ox 04/24/20 11:35 83 16 126/93 100 04/24/20 11:26 37.0 C 95 H 16 149/85 H 98 04/24/20 06:51 36.9 C 78 18 144/84 H 96 Transfer of Care Handoff Completed per policy Notes Mental Status: alert / awake / arousable Patient Amnestic to Procedure: Yes Nausea / Vomiting: adequately controlled Pain: adequately controlled Airway Patency, RR, SpO2: stable & adequate BP & HR: stable & adequate Hydration State: stable & adequate Anesthetic Complications: no major complications apparent
--- NOTE | 2020-04-24 11:51 | XRay Report ---
XR knee RT 1 or 2V routine HISTORY: 54 years-old Female Surgical Post Op right knee total joint arthroplasty COMPARISON: Knee radiographs 01/31/2020 TECHNIQUE: 2 views of the right knee FINDINGS: Right knee total joint arthroplasty and patella resurfacing. Anterior midline skin tracie are noted along with expected postsurgical soft tissue swelling and deep tissue air with surgical drainage cath eter. No acute fracture or retained foreign body. IMPRESSION: Right knee total joint arthroplasty and patella resurfacing with expected postoperative c hanges. ACT 112: Negative or not required by law. The above report was generated using voice recognition software. It may contain grammatical, syntax o r spelling errors. Electronically signed by: Gerardo Ascencio M.D. 04/24/2020 11:50 AM
[2020-04-24] MEDS ORDERED: NALOXONE HCL 0.4 MG/1 ML VIAL/CARP IV PRN (12:17)
[2020-04-24] MEDS ORDERED: ALUMINUM/MAGNESIUM SUSP 30 ML UDC PO PRN (12:17)
[2020-04-24] MEDS ORDERED: bisacodyL 10 MG SUPP PR PRN (12:17)
[2020-04-24] MEDS ORDERED: diphenhydrAMINE Capsule 25 MG CAP PO PRN (12:17)
[2020-04-24] MEDS ORDERED: METOCLOPRAMIDE HCL INJ 5 MG/ML 2 ML VIAL IV PRN (12:17)
[2020-04-24] MEDS ORDERED: MAGNESIUM HYDROXIDE SUSP 30 ML UDC PO PRN (12:17)
[2020-04-24] MEDS ORDERED: ALBUTEROL HFA 8 GM INHALER INH PRN (12:28)
[2020-04-24] MEDS: SODIUM CHLORIDE 0.9% 1000ML 1,000 ML IV SCH ×2 (13:07→20:40)
[2020-04-24] MEDS: KETOROLAC 30 MG/ML VIAL IV SCH ×2 (13:08→19:29)
[2020-04-24] MEDS: ACETAMINOPHEN 500 MG TAB PO SCH ×2 (13:08→20:43)
[2020-04-24] MEDS ORDERED: TRANEXAMIC ACID / 0.7% NACL 1,000 MG/100 ML BAG IV SCH (17:23)
[2020-04-24] MEDS: Scopolamine CHECK PATCH PLACEMENT SCH ×2 (18:14→22:31)
[2020-04-24] MEDS: FERROUS GLUCONATE 324 MG TAB PO SCH (18:15)
[2020-04-24] MEDS: ASCORBIC ACID 500 MG TAB PO SCH (18:15)
[2020-04-24] MEDS: ceFAZolin 2000MG 2,000 MG/15 ML SYR IV SCH (18:23)
--- NOTE | 2020-04-24 18:29 | Operative Report ---
Post Operative Report Pre & Post Diagnosis Operation Date: 04/24/20 08:50 Pre-Op Diagnosis: Right knee degenerative joint disease Post-Op Diagnosis: Right knee degenerative joint disease I identified the patient and participated in the time-out.: Yes Procedure Operation Date: 04/24/20 08:50 Actual Procedures p Right Total Knee Replacement, Cemented(Right) - Klaus Saleh MD Surgeon Klaus Saleh MD Kiln Mechanic Radu, PAC Estimated Blood Loss 50 Findings Consistent with Post-Op Diagnosis Operative findings revealed advanced right knee tricompartment DJD with extensive grade 4 [id number] disease and erosions in all 3 compartments most severe in the medial and patellofemoral compartments. She had a very large soft tissue envelope. Large knee joint effusion. Osteophytes in all 3 compartments. Fluids 800 cc. Specimens Right knee sent for pathology. Drains None. Complications none Disposition Accompanied Patient To Recovery: No Disposition: Recovery Room Indications Patient is a 54-year-old morbidly obese female with a BMI of 52.3 setting a lifelong history of knee pain discomfort that has become more debilitating over time patient failed all conservative measures. X-ray showed severe [id number] disease with bony destruction of the proximal tibia and varus deformity. She underwent a left knee replacement about a year ago is done well from this. As she elected she with right total knee arthroplasty. Description of Procedure Operative implants consisted of: 1 Biomet Vanguard size 62.5 right posterior stabilized femoral component. 2. Biomet size 63 tibial tray with an 80 mm x 11 mm 0 offset stem with a small cruciate wing. 3. 10 mm posterior bite polyethylene insert. 4. 28 x 8 all polypatella. The patient was taken to the operating room identified and placed on the operating table supine position. All contact areas were appropriately padded. IV antibiotics arrived by anesthesia team. Spinal anesthetic and abductor canal block had been provided in the holding area. Villafuerte catheter was placed in sterile fashion. A right thigh turn was then placed in the right lower extremities and prepped and draped in usual sterile fashion. The right leg was elevated exsanguinated with use of an Esmarch interspace at 35 0 mmHg. An anterior approach to the right knee was then performed the longitudinal incision centered over the patella. Sharp dissection was got through subcutaneous this down the extensor mechanism. A medial parapatellar arthrotomy incision was made. Some subperiosteal dissection was carried out medially. The fat pad was resected from each patella tendon. Lateral patellofemoral ligament was released. Patella was subluxated laterally knee was flexed. The osteophytes were taken off distal femur. The ACL and PCL were then released from distal femur and the tibia subluxate anteriorly. I then resected the tibial eminence. I then entered the IM canal and reamed to a 10. That we could get any bigger reamer down the canal the hallway bigger than a 10. I then left the [address] and used this is the IM cutting guide. The IM cutting device was placed on the tamiko and pinned in place to remove about a millimeter bone from most efficient aspect medial tibial plateau. The tibia was then cut. It was sized to a size 63. It was prepared for a neutral offset stem and 11 mm x 80 mm stem. I did reamed up to a size 11. The tray was assembled and placed in the tibia. Attention drawn the femur. The distal femur there with a sharp drop with intramedullary canal was suction. A right 5 degree valgus cutting guide was placed. This femoral cutting block was pinned in place but distal femoral cut was made to take an additional 3 mm of bone off distal femur. The femur was then sized to a size 62.5. The AP cutting block was pinned parallel to the epicondylar axis which was 4 degrees of external rotation. The anterior cut, anterior chamfer, posterior cut, posterior chamfer cuts were made. Box cutting guide was placed and adjusted slight lateral box cut was made. The knee was flexed. The remnants of the medial lateral menisci were excised. The osteophytes were taken off the posterior aspect of the femur. A trial femoral component was placed. The trial insert w as then placed. At the 10 mm insert fit most probably. We placed a stem in the tibia due to this patient's large size and significant deformity and concerns for early a tibial loosening. Attention drawn the patella. The patella was cleaned of all soft tissues. Patella thickness measured 18 mm in thickness was cut down to 12. It was sized to size 28 patella. The lug holes were drilled for the 28 patella. The lateral osteophyte is moved. Patella button was placed. Knee was taken through range of motion patella tracked nicely with no thumbs test. Attention drawn to place the permanent components. All trial components were removed. A bone plug was placed in the distal femur limit blood loss. A double batch [place] G cement was mixed. I did add add an additional gram of vancomycin due to her morbid obesity increased risk for infection. A Biomet Vanguard size 62.5 right posterior stabilized femoral component, a size 63 tibial tray with an 80 x 11mm stem with a small cruciate wing, a 10 mm Po stabilized polyethylene insert, and a 28 x 8 all polypatella then cemented in place. The knee was brought out in full extension total cement hardened. Final cement check was then performed. The pericapsular tissues were injected with total 100 cc of combination of 20 cc of Exparel, 30 cc normal saline, 50 cc of quarter percent Marcaine with epinephrine. Patient did receive 1 g tranexamic acid. The turn was then let down for final turn time 78 minutes but hemostasis assured use electrocautery. Extensor mechanism closed with combination 1 PDS suture #1 Vicryl suture in [id number] fashion. Extensor mechanism checked found to be intact and the subcutaneous tissue then closed with 2 Dexon suture in a buried interrupted fashion skin was closed skin tracie. Leg was then cleaned dried a sterile dressing was Xeroform, 4 x 4's, sterile cast padding, Robi bandage were applied. Patient then transferred to the recovery room in stable condition. Patient tolerated procedure well and there were no complications. Karl Lovelace, my physician fire assistant, was present for the entire procedure. His assistance was essential and required for appropriate patient positioning, prepping and draping, surgical exposure, performing the technical details of the operation, placement the implants, closure of the wound, and placement of the sterile bandage. I attest to the content of the Intraoperative Record and any orders documented therein. Any exceptions are noted below.
[2020-04-24] MEDS: oxyCODONE HCL IR 5 MG TAB (IMMEDIATE RELEASE) PO PRN (20:13)
[2020-04-24] MEDS: CALCIUM 600MG + VIT D 400 IU TAB PO SCH (20:41)
[2020-04-24] MEDS: SENNA 8.6 MG TAB PO SCH (20:42)
[2020-04-24] MEDS: ASPIRIN 81 MG ECTAB PO SCH (20:42)
[2020-04-24] MEDS: MONTELUKAST SODIUM 10 MG TABLET PO SCH (20:42)
[2020-04-24] MEDS: MELATONIN 3 MG TAB PO SCH ×2 (20:44→22:30)
[2020-04-24] MEDS: DOCUSATE SODIUM 100 MG CAP PO SCH (20:44)
[2020-04-24] MEDS: TAPENTADOL HCL ER 50 MG TABCR PO SCH (20:48)
[2020-04-24] MEDS ORDERED: POTASSIUM OTC 99 MG PO SCH (21:00)
[2020-04-24] MEDS: HYDROmorphone INJ 0.5 MG/0.5 ML SYR IV PRN (22:30)
[2020-04-25] MEDS: KETOROLAC 30 MG/ML VIAL IV SCH ×4 (01:01→18:05)
[2020-04-25] MEDS: ceFAZolin 2000MG 2,000 MG/15 ML SYR IV SCH (01:02)
[2020-04-25] MEDS: SODIUM CHLORIDE 0.9% 1000ML 1,000 ML IV SCH (02:32)
[2020-04-25] MEDS: HYDROmorphone INJ 0.5 MG/0.5 ML SYR IV PRN (02:33)
[2020-04-25] MEDS: LEVOTHYROXINE SODIUM 25 MCG TABLET PO SCH (06:12)
[2020-04-25] MEDS: ACETAMINOPHEN 500 MG TAB PO SCH ×3 (06:13→22:25)
[2020-04-25 06:34] LABS: Hematocrit (blood only) 32.5 % (37-47); Hemoglobin 10.5 g/dL (12.0-16.0); Mean Corpuscular Hemoglobin 31.2 pg (25-34); Mean Corpuscular Hgb Conc 32.3 g/dL (32-36); Mean Corpuscular Volume 96.4 fL (80-100); Mean Platelet Volume 10.8 fL (7.4-10.4); Platelet Count 205 K/uL (130-400); RDW Coefficient of Variation 13.3 % (11.5-14.5); RDW Standard Deviation 46.4 fL (36.4-46.3); Red Blood Count 3.37 M/uL (4.2-5.4); White Blood Count 7.69 K/uL (4.8-10.8)
[2020-04-25 07:24] LABS: BUN Creatinine Ratio 14.6 (10-20); Creatinine Clr Calc Pharmacy 92.5 ml/min; Est GFR (African American) 83.5; Potassium 3.9 mmol/L (3.5-5.1)
--- NOTE | 2020-04-25 08:05 | Progress Notes ---
DATE: 04/25/2020 SUBJECTIVE: A 54-year-old female postop day 1 from right knee replacement. She is doing okay. Pain has been reasonably well controlled. Denies any chest pain or shortness of breath. Not feeling dizzy or lightheaded. OBJECTIVE: VITAL SIGNS: Temperature is 36.9. Vital signs stable. GENERAL: Shows a pleasant, middle-aged female. She is lying in bed, looks reasonably comfortable. EXTREMITIES: Examination of the right leg reveals the dressing to be clean, dry and intact. Leg is well aligned. She can dorsiflex and plantarflex her foot appropriately. She is neurologically intact. LABORATORY DATA: Hemoglobin 10.5. Hematocrit 32.5. Electrolytes are pending. ASSESSMENT: A 54-year-old female postop day 1 from right knee replacement, doing pretty well. Pain is controlled. She is neurologically intact. PLAN: 1. DVT prophylaxis including thigh-high TEDs, SCDs, and aspirin twice a day. 2. PT/OT. Weight bear as tolerated. Right total knee protocol. 3. Pain control, doing okay with current pain regimen. 4. Disposition: She is planning to be discharged to home with some home health once adequately recovered and medically stable.
[2020-04-25] MEDS ORDERED: NON-FORMULARY MEDICATION (Turmeric 400 MG) PO SCH (09:00)
[2020-04-25] MEDS ORDERED: NON-FORMULARY MEDICATION (Lysine [L-Lysine] 500 MG) PO SCH (09:00)
[2020-04-25] MEDS ORDERED: MULTIVITAMIN TAB PO SCH (09:00)
[2020-04-25] MEDS ORDERED: NON-FORMULARY MEDICATION (Ascorbic Acid (Vitamin C) [Vitamin C] 1 GM) PO SCH (09:00)
[2020-04-25] MEDS: oxyCODONE HCL IR 5 MG TAB (IMMEDIATE RELEASE) PO PRN (09:57)
[2020-04-25] MEDS: TAPENTADOL HCL ER 50 MG TABCR PO SCH ×2 (09:57→22:23)
[2020-04-25] MEDS: Scopolamine CHECK PATCH PLACEMENT SCH ×2 (09:57→18:07)
[2020-04-25] MEDS: VITAMIN B COMPLEX TAB PO SCH (09:58)
[2020-04-25] MEDS: PANTOprazole 40 MG TAB PO SCH (09:59)
[2020-04-25] MEDS: DOCUSATE SODIUM 100 MG CAP PO SCH ×2 (09:59→22:24)
[2020-04-25] MEDS: CETIRIZINE HCL 10 MG TABLET PO SCH (09:59)
[2020-04-25] MEDS: PARoxetine HCL 10 MG TAB PO SCH (09:59)
[2020-04-25] MEDS: FERROUS GLUCONATE 324 MG TAB PO SCH ×2 (10:00→18:04)
[2020-04-25] MEDS: ENALAPRIL MALEATE 10 MG TAB PO SCH (10:00)
[2020-04-25] MEDS: hydroCHLOROthiazide 25 MG TAB PO SCH (10:01)
[2020-04-25] MEDS: ASPIRIN 81 MG ECTAB PO SCH ×2 (10:01→22:23)
[2020-04-25] MEDS: MULTIVITAMIN TAB PO SCH (10:01)
[2020-04-25] MEDS: ASCORBIC ACID 500 MG TAB PO SCH ×2 (10:01→18:04)
[2020-04-25] MEDS: CALCIUM 600MG + VIT D 400 IU TAB PO SCH (22:23)
[2020-04-25] MEDS: SENNA 8.6 MG TAB PO SCH (22:23)
[2020-04-25] MEDS: MONTELUKAST SODIUM 10 MG TABLET PO SCH (22:24)
[2020-04-26] MEDS: KETOROLAC 30 MG/ML VIAL IV SCH ×2 (00:17→06:33)
[2020-04-26] MEDS: Scopolamine CHECK PATCH PLACEMENT SCH ×2 (00:17→08:46)
[2020-04-26] MEDS: LEVOTHYROXINE SODIUM 25 MCG TABLET PO SCH (06:31)
[2020-04-26] MEDS: ACETAMINOPHEN 500 MG TAB PO SCH (06:31)
[2020-04-26 08:03] VITALS: BP 132/74; PULSE 78; TEMP 98.6; O2SAT 92
[2020-04-26] MEDS: ASPIRIN 81 MG ECTAB PO SCH (08:43)
[2020-04-26] MEDS: VITAMIN B COMPLEX TAB PO SCH (08:43)
[2020-04-26] MEDS: MULTIVITAMIN TAB PO SCH (08:43)
[2020-04-26] MEDS: ASCORBIC ACID 500 MG TAB PO SCH (08:44)
[2020-04-26] MEDS: FERROUS GLUCONATE 324 MG TAB PO SCH (08:44)
[2020-04-26] MEDS: hydroCHLOROthiazide 25 MG TAB PO SCH (08:44)
[2020-04-26] MEDS: PANTOprazole 40 MG TAB PO SCH (08:44)
[2020-04-26] MEDS: CETIRIZINE HCL 10 MG TABLET PO SCH (08:45)
[2020-04-26] MEDS: ENALAPRIL MALEATE 10 MG TAB PO SCH (08:45)
[2020-04-26] MEDS: PARoxetine HCL 10 MG TAB PO SCH (08:45)
[2020-04-26] MEDS: DOCUSATE SODIUM 100 MG CAP PO SCH (08:45)
[2020-04-26] MEDS: TAPENTADOL HCL ER 50 MG TABCR PO SCH (08:46)
--- NOTE | 2020-04-26 09:34 | Progress Notes ---
DATE: 04/26/2020 SUBJECTIVE: A 54-year-old female postop day 2 from right knee replacement. She is doing pretty well. Really not much pain at all while still but some discomfort with therapy and knee motion. No chest pain or shortness of breath. Not feeling dizzy or lightheaded. OBJECTIVE: VITAL SIGNS: Temperature 37.0. Vital signs stable. GENERAL: Shows a pleasant, middle-aged female. She is lying in bed, looks pretty comfortable. EXTREMITIES: Examination of the right leg reveals it to be well aligned. Her incision is clean, dry and intact. Fairly mild swelling. She can dorsiflex and plantarflex her foot appropriately. ASSESSMENT: A 54-year-old female postop day 2 from right knee replacement, doing pretty well. Pain is controlled. She is neurologically intact. PLAN: 1. DVT prophylaxis including thigh-high TEDs, SCDs, and aspirin twice a day. 2. PT/OT. Weight bear as tolerated. Right total knee protocol. 3. Pain control, doing well with current pain regimen. 4. Disposition: Plan to discharge to home with some home health later today.
[2020-04-26] MEDS: oxyCODONE HCL IR 5 MG TAB (IMMEDIATE RELEASE) PO PRN (12:50)
[2020-04-26] MEDS ORDERED: CeleBREX 200 MG CAP PO SCH (21:00)
--- NOTE | 2020-04-29 06:35 | Discharge Summary ---
Date of Service April 29, 2020 Admission HPI Per Admitting Provider Documented in the h & P Admission Exam (Per Admitting) Constitutional Documented in the H & P Discharge Data Consultations 04/24/20 12:17 Consult Case Management - Discharge Planning Routine Procedures Performed Operation Date: 04/24/20 08:50 Actual Procedures p Right Total Knee Replacement, Cemented(Right) - Klaus Saleh MD Hospital Course (1) Status post total right knee replacement: This patient is a 54 year old female admitted on 04/24/20 and underwent total knee arthroplasty. She tolerated the procedure well and there were no complications. Transferred to the PACU post op and later to the orthopedic floor for further care. She was given ancef for antibiotic prophylaxis. She was also given EDWIGE stockings, SCDs, and aspirin for DVT prophylaxis. Hemoglobin, hematocrit, and vital signs were monitored during her hospital stay and remained stable. Did not require any blood transfusions. There were no complications during her hospital stay. By post op day #2 the patient was tolerating a regular diet, pain was reasonably controlled with oral pain medicine, and she was participating in physical therapy. On post op day #2 the patient was discharged home and set up with home health care. She was given printed discharge instructions including prescriptions for extra strength tylenol, aspirin, and oxycodone. Continue physical therapy, weight bearing as tolerated. Continue EDWIGE stockings. Follow up approximately 2 weeks post op or sooner if there are problems or concerns. Coding Level of Care Code None Diagnoses Status post total right knee replacement Z96.651
== END 2020-04-26 12:55 | disposition home health service (06) ==
LOC: ASU 06:31 → 3E 06:31
DX: Z96.652 Presence of left artificial knee joint; I10 Essential (primary) hypertension; J45.909 Unspecified asthma, uncomplicated; E03.9 Hypothyroidism, unspecified; M17.11 Unilateral primary osteoarthritis, right knee; I25.10 Atherosclerotic heart disease of native coronary artery without angina pectoris; Z87.891 Personal history of nicotine dependence; Z20.828 Contact with and (suspected) exposure to other viral communicable diseases; F41.8 Other specified anxiety disorders; K21.9 Gastro-esophageal reflux disease without esophagitis; Z68.43 Body mass index [BMI] 50.0-59.9, adult; E66.01 Morbid (severe) obesity due to excess calories; Z88.8 Allergy status to other drugs, medicaments and biological substances; Z79.899 Other long term (current) drug therapy; G47.30 Sleep apnea, unspecified; D64.9 Anemia, unspecified